=== PATIENT | female | born 1960 | race Caucasian/White ===

== ENCOUNTER → 2024-07-03 10:25 | Outpatient (BNVA) | payer MEDICARE, MEDICAID, SELFPAY | PROVIDERS: Visit Provider Orthopaedic Surgery | DX: M54.6 Pain in thoracic spine; S62.101A Fracture of unspecified carpal bone, right wrist, initial encounter for closed fracture; W19.XXXA Unspecified fall, initial encounter; Z46.89 Encounter for fitting and adjustment of other specified devices; S52.591D Other fractures of lower end of right radius, subsequent encounter for closed fracture with routine healing; X58.XXXD Exposure to other specified factors, subsequent encounter | CPT/HCPCS: 72072; 73110; 99204 ==

== ENCOUNTER 2024-07-03 11:34 | Outpatient (CLI) | payer MEDICARE, MEDICAID, SELFPAY | END 2024-07-03 11:35 | disposition home or self-care (01) | LOC: SPT 11:36 | PROVIDERS: Visit Provider Orthopaedic Surgery | DX: Z46.89 Encounter for fitting and adjustment of other specified devices (principal); S52.591D Other fractures of lower end of right radius, subsequent encounter for closed fracture with routine healing; X58.XXXD Exposure to other specified factors, subsequent encounter | CPT/HCPCS: 97760; L3982 ==

== ENCOUNTER 2024-07-18 11:13 | Outpatient (CLI) | payer MEDICARE, MEDICAID, SELFPAY ==
--- NOTE | 2024-07-18 12:15 | MR_ITS ---
WS: [id number] MRI LUMBAR SPINE NONCONTRAST TECHNIQUE: Sagittal T1, T2 and STIR imaging. Axial T1 and T2 imaging. CLINICAL INFORMATION: Back Pain COMPARISON: None. FINDINGS: Mild lumbar curve. Biconcave compression fracture T12 with loss of approximate 20% vertebral body hei ght with associated edema. Visualized fracture clefts. Mild retropulsion posterior inferior cortex wi th mild central canal stenosis and mild disc bulging at T12-L1. Prior pedicle screw fixation L3-L5. No other acute appearing compression fractures in the lumbar spin e. L1-L2: Mild annular bulging. Mild facet arthropathy. Slight narrowing of the LEFT greater than RIGHT subarticular recess. Foramina are patent. L2-L3: Slight anterolisthesis L2 on L3. Prominent central disc protrusion with moderate to severe sun tral canal stenosis. Impingement of the subarticular recess bilaterally. Moderate facet arthropathy. Moderate RIGHT and mild LEFT foraminal narrowing. L3-L4: Spinal canal and foramen are patent. Laminectomy defects. L4-L5: Spinal canal and foramen are patent. Laminectomy defects. L5-S1: Spinal canal and foramen are patent. Mild facet arthropathy. Partially visualized edema within the S3 and S4 sacral segments with diffuse edema. Associated irregu larity suspicious for fracture with callus formation. Recommend correlation for sacrococcygeal fractu re and pain. MR/MR lumbar spine wo con* [id number] IMPRESSION: 1. Diffuse edema in the distal sacrum and sacral coccygeal junction with irreg ularity suspicious for fracture with callus formation. Recommend correlation fo r sacral pain. 2. T12 compression fracture described on the thoracic spine MRI. 3. Moderate to severe central canal stenosis L2-3 due to disc bulge and facet arthropathy with ligamentum flavum hypertrophy. 4. Spinal canal foramina are patent at the fusion levels L3-L5.
--- NOTE | 2024-07-18 14:30 | MR_ITS ---
WS: [id number] MRI THORACIC SPINE WITHOUT CONTRAST TECHNIQUE: Sagittal T1, T2 and STIR imaging. Axial T2 imaging. Noncontrast imaging obtained. CLINICAL INFORMATION: Back pain COMPARISON: None. FINDINGS: Mild thoracic curve. Moderate thoracic kyphosis. Compression fractures with edema involving the T8 ve rtebral body and T12 vertebral body. Mild compression of the RIGHT superior endplate L1 with trace ed tiny. Anterior wedging at T8 with approximately 50% loss of vertebral body height anteriorly. No significan t retropulsion. Biconcave compression of the T12 vertebral body with fracture cleft in the inferior e ndplate with loss of approximately 20% vertebral body height. Minimal retropulsion of the posterior i nferior cortex. Mild central canal stenosis. Tiny LEFT paracentral protrusion at T6-T7. Tiny shallow central protrusion T9-T10. Prominent LEFT paracentral protrusion T10-T11 with mild central canal stenosis and slight indentation LEFT ventral thoracic cord. Mild LEFT foraminal narrowing. Mild to moderate facet arthropathy lower thoracic spine. Normal caliber thoracic aorta. MR/MR thoracic spin wo con* [id number] IMPRESSION: 1. Recent compression fractures at T8 and T12 with associated edema described above. Slight compression RIGHT L1 superior end plate with trace edema. 2. Mild central canal stenosis T12 due to slight retropulsion of the posterior inferior cortex. 3. Prominent LEFT paracentral protrusion T10-11 with mild central canal stenos is and slight indentation on the thoracic cord
== END 2024-07-18 11:14 | disposition home or self-care (01) ==
LOC: RAD 11:13
PROVIDERS: PCP Family Medicine; Visit Provider Orthopaedic Surgery
DX: S22.060A Wedge compression fracture of T7-T8 vertebra, initial encounter for closed fracture (principal); S22.080A Wedge compression fracture of T11-T12 vertebra, initial encounter for closed fracture; M51.24 Other intervertebral disc displacement, thoracic region; X58.XXXA Exposure to other specified factors, initial encounter
CPT/HCPCS: 72146; 72148

== ENCOUNTER → 2024-07-24 13:15 | Outpatient (BNVA) | payer MEDICARE, MEDICAID, SELFPAY | PROVIDERS: PCP Family Medicine; Visit Provider Orthopaedic Surgery | DX: M54.9 Dorsalgia, unspecified (principal); Z09 Encounter for follow-up examination after completed treatment for conditions other than malignant neoplasm | CPT/HCPCS: 36415; 80053; 81001; 85025; 99214 ==

== ENCOUNTER → 2024-07-31 13:22 | Outpatient (BNVA) | payer MEDICARE, MEDICAID, SELFPAY | PROVIDERS: PCP Family Medicine; Visit Provider Family Medicine | DX: Z01.818 Encounter for other preprocedural examination (principal) | CPT/HCPCS: 81003 ==

== ENCOUNTER 2024-08-06 07:22 | Day surgery (SDC) | payer MEDICARE, MEDICAID, SELFPAY ==
[2024-08-06] VITALS (13 sets, daily range): BP systolic 130–171; BP diastolic 77–99; PULSE 60–79; RESP 16–18; TEMP 36.2–36.5; O2SAT 90–100; BMI 17.2
--- NOTE | 2024-08-06 07:28 | SC_ITS ---
WS: [id number] Exam: C-arm FL for Kyphoplasty Date/Time of Exam: 08/06/2024 7:28 AM Reason For Exam: Surgery Limited intraoperative C-arm images of the thoracic and lumbar spine are submitted. Images were obtai yony for intraoperative purposes.
[2024-08-06] MEDS: sodium chloride 0.9% 1,000 ML 30 ML IV (08:26)
--- NOTE | 2024-08-06 08:41 | W.PM.OPSUD ---
Surgery/Procedure H&P Update DATE OF PROCEDURE: August 06, 2024 DATE H&P PERFORMED: 07/24/24 H&P UPDATE INFORMATION: I have reviewed H&P completed within last 30 days, I have examined patient prior to procedure and No changes to prior documentation PREOP DIAGNOSIS: T8, T12 and L1 osteoporotic wedge traumatic compression fractures PLANNED PROCEDURE: Operation Date: 08/06/24 09:05 Proposed Procedures p KyphoplastyT8, T12, L1(Not Applicable) - Yunior Zafar DO
--- NOTE | 2024-08-06 09:05 | ANES.PREANE2 ---
Pre-Anesthetic Assessment Height/Weight: Height 1.63 m Weight 45.359 kg Temp Pulse Resp BP Pulse Ox O2 Del Method 97.6 F 60 16 171/78 97 Room Air 08/06/24 07:52 08/06/24 07:52 08/06/24 07:52 08/06/24 07:52 08/06/24 07:52 08/06/24 07:52 Preop Diagnosis: T8, T12 and L1 osteoporotic wedge traumatic compression fractures Operation Date: 08/06/24 09:05 Proposed Procedures p KyphoplastyT8, T12, L1(Not Applicable) - Yunior Zafar, DO Familial anesthetic complications: None Was Beta Jeffy taken within 24 hours: N/A Was Clonidine taken within 24 hours: N/A Last intake: Intake Last Liquid Date 08/05/24 Last Liquid Time 23:55 Last Solid Date 08/05/24 Last Solid Time 17:30 Social Tobacco and No alcohol Exam alert, oriented x 3, clear to auscultation bilaterally and regular rate & rhythm Airway Mallampati: Class II Pulmonary Chronic Obstructive Pulmonary Disease CV/HEM Hypertension Anesthetic Plan ASA status: 3 Anesthesia: General Risk of > 500 ml blood loss (7ml/kg in children): No Medications/Allergies Home Medications Medication Instructions Recorded Confirmed Last Taken Type Fast form #1 ea 07/03/24 07/24/24 Unknown Rx amlodipine 5 mg tablet 5 mg PO DAILY 07/28/24 08/05/24 08/05/24 History budesonide-formoterol HFA 80 2 puff inhalation BID 07/28/24 08/05/24 08/06/24 History mcg-4.5 mcg/actuation aerosol inhaler (Symbicort) bupropion HCl 150 mg 24 hr tablet, 150 mg PO DAILY 07/28/24 08/05/24 08/05/24 History extended release cariprazine 3 mg capsule (Vraylar) 3 mg PO DAILY 07/28/24 08/05/24 08/05/24 History cyanocobalamin (vitamin B-12) 5,000 mcg PO DAILY 07/28/24 08/05/24 08/05/24 History 5,000 mcg capsule diclofenac sodium 50 mg 50 mg PO BID 07/28/24 08/05/24 08/05/24 History tablet,delayed release donepezil 10 mg tablet 10 mg PO .qhs 07/28/24 08/05/24 08/05/24 History ferrous sulfate 325 mg (65 mg 325 mg PO DAILY 07/28/24 08/05/24 08/05/24 History iron) tablet,delayed release gabapentin 300 mg capsule 300 mg PO TID 07/28/24 08/05/24 08/05/24 History levomilnacipran 80 mg capsule,24 80 mg PO DAILY 07/28/24 08/05/24 08/05/24 History hr,extended release (Fetzima) losartan 100 mg tablet 100 mg PO DAILY 07/28/24 08/05/24 08/05/24 History magnesium 200 mg tablet 200 mg PO DAILY 07/28/24 08/05/24 08/05/24 History oxycodone 5 mg tablet 5 mg PO BID PRN pain 7 days #14 07/31/24 08/05/24 08/06/24 Rx tabs Allergies Allergy/AdvReac Type Severity Reaction Status Date / Time No Known Allergies Allergy Verified 07/28/24 11:41 Current Medications Generic Name Dose Route Start Last Admin Trade Name Freq PRN Reason Stop Dose Admin Sodium Chloride 1,000 mls @ 30 mls/hr 08/06/24 07:30 08/06/24 08:26 Sodium Chloride 0.9% IV 08/07/24 07:29 30 mls/hr .Q24H KARLIE Administration PFSH Anesthesia Social History Smoking and tobacco/nicotine status: current every day tobacco/nicotine user Data Anesthesia Cardiac Studies: No Data to Display
[2024-08-06] MEDS: ceFAZolin 2,000 mg SDV 2000 MG IVP (09:07)
[2024-08-06] MEDS: iohexol 300 mg/mL 50 mL Btl XX (09:44)
[2024-08-06] MEDS: lidocaine-epi 2% PF 1:200,000 20 mL SDV 10 ML XX (09:45)
--- NOTE | 2024-08-06 10:31 | PM.OP ---
Operative Report Date of procedure: August 06, 2024 Pre-op diagnosis: T8, T12 and L1 osteoporotic wedge traumatic compression fractures Post-op diagnosis: same Procedure done: 1. T8 kyphoplasty 2. T12 kyphoplasty 3. L1 kyphoplasty Surgeon: Yunior Zafar DO Estimated blood loss (mL): 5 Procedure: 1. T8 kyphoplasty 2. T12 kyphoplasty 3. L1 kyphoplasty Patient brought the operative suite after an Gonasi was placed in the prone position. All his impingement well-padded. Biplanar fluoroscopy was brought in. Patient was then prepped and draped normal sterile fashion. All his impingement well-padded. Skin incisions made over the lateral left pedicle of L1. This again confirmed under biplanar fluoroscopy. Skin incision made the awl was inserted followed by the drill followed by the balloon. Balloon was inflated deflated and pulled out. The vertebrae was then filled with cement this was done under biplanar fluoroscopy. Vertebrae had good fill. Next attension was brought to T12. Again skin incision made on the left lateral pedicle. Skin incisions were made awl was inserted followed by the drill. Balloon was then inserted. Balloon was inflated and deflated. Balloon was removed. The vertebrae was then again filled with cement. AP and lateral fluoroscopy ensured there was in good position. Next attension was brought to the T8 vertebrae. The incision is being made on the left lateral pedicle. The awl was inserted. The drill was then inserted. The balloon was inserted and inflated and deflated. Balloon was then removed. And the void was filled with cement to good fill on AP lateral fluoroscopy. Final x-rays were taken the splint looks like it is good position. Wounds irrigated closed with nylon suture. Sterile dressings applied patient transferred to the PACU in stable condition.
[2024-08-06] MEDS: fentaNYL 50 mcg/mL INJ 2mL IVP (10:35)
[2024-08-06] MEDS: oxyCODONE-APAP 5-325 mg Tablet 1 TAB PO (11:21)
--- NOTE | 2024-08-06 11:40 | ANE.PACU2 ---
Inpatient post-anesthesia follow up: Airway intact: Yes Vital signs: Temperature 97.7 F Pulse Rate 69 Respiratory Rate 16 Blood Pressure 130/77 Pulse Oximetry 91 Oxygen Delivery Me thod Room Air Oxygen Flow Rate 8 Fraction of Inspir ed Oxygen Hydration adequate: Yes Nausea and vomiting: No Pain level: 1 Mental status: Baseline
== END 2024-08-06 11:48 | disposition home or self-care (01) ==
PROVIDERS: PCP Family Medicine; Visit Provider Orthopaedic Surgery
PROC: (CPT 22513; principal; 2024-08-06 08:55)
DX: S22.060A Wedge compression fracture of T7-T8 vertebra, initial encounter for closed fracture (principal); S22.080A Wedge compression fracture of T11-T12 vertebra, initial encounter for closed fracture; S32.010A Wedge compression fracture of first lumbar vertebra, initial encounter for closed fracture; X58.XXXA Exposure to other specified factors, initial encounter; J44.9 Chronic obstructive pulmonary disease, unspecified; I10 Essential (primary) hypertension; F17.200 Nicotine dependence, unspecified, uncomplicated
CPT/HCPCS: 22513; 22515 ×2; 76000; J0690; J1100; J2405; J2704; J3010; J3490; J7030

== ENCOUNTER → 2024-08-21 13:18 | Outpatient (BNVA) | payer MEDICARE, MEDICAID, SELFPAY | PROVIDERS: PCP Family Medicine; Visit Provider Orthopaedic Surgery | DX: Z09 Encounter for follow-up examination after completed treatment for conditions other than malignant neoplasm (principal); Z01.818 Encounter for other preprocedural examination | CPT/HCPCS: 72072; 72100; 73110; 99213 ==

== ENCOUNTER → 2024-09-25 10:45 | Outpatient (BNVA) | payer MEDICARE, MEDICAID, SELFPAY | PROVIDERS: PCP Family Medicine; Visit Provider Orthopaedic Surgery | DX: S52.551D Other extraarticular fracture of lower end of right radius, subsequent encounter for closed fracture with routine healing (principal); X58.XXXD Exposure to other specified factors, subsequent encounter | CPT/HCPCS: 73110; 99213 ==

== ENCOUNTER → 2025-03-03 10:55 | Outpatient (BNVA) | payer MEDICARE, MEDICAID, SELFPAY | PROVIDERS: PCP Family Medicine; Visit Provider Orthopaedic Surgery | DX: M54.9 Dorsalgia, unspecified (principal) | CPT/HCPCS: 72072; 72100; 99213 ==

== ENCOUNTER 2025-03-05 12:59 | Outpatient (CLI) | payer OTHER, MEDICAID, SELFPAY ==
--- NOTE | 2025-03-05 13:00 | MR_ITS ---
WS: [id number] MRI LUMBAR SPINE NONCONTRAST HISTORY: back pain COMPARISON: MRI 07/18/2024 TECHNIQUE: Sagittal and axial multisequence imaging is submitted. Prior kyphoplasties at T8, T12 and L1. Mild anterior wedging of the T7. Posterior lumbar fusion from L3-L5. Previously described intense signal abnormality in the distal sacrum has resolved. New S1-S2 separation. S1 anterolisthesis by 5 mm is new since the prior exam. There is new edema involving the sacrum which has progressed since 07/18/2024. Conus terminates normally at L1-2 disc level. T11-12: Facet arthritis encroaching upon the posterior thecal sac. No high-grade stenosis. Bilateral moderate facet arthritis encroaching upon the thecal sac. Mild bilateral foraminal stenosis. L1-L2: Mild annular disc bulging with ligamentum flavum and facet arthritis. Mild central, subarticular recess and RIGHT foraminal stenosis. L2-L3: Diffuse annular disc bulging with ligamentum flavum and facet arthritis. Disc osteophyte disease encroaching upon the central canal and foramina. Prominent central disc protrusions. There is moderate to severe central, bilateral subarticular recess and RIGHT foraminal stenosis. Mild LEFT foraminal stenosis. Similar to the prior study. L3-L4: Diffuse annular disc bulging with a large posterior laminectomy. Clumping of the nerve roots in the thecal sac. Mild RIGHT foraminal stenosis. L4-L5: Mild annular disc bulging with a large posterior laminectomy defect. Mild bilateral foraminal stenosis. L5-S1: Mild facet arthritis. Mild LEFT foraminal stenosis. Atherosclerotic changes within the abdominal aorta. MR/MR lumbar spine wo con* [id number] IMPRESSION: 1. Since prior examination patient has undergone posterior lumbar fusion from L3-L5 with laminectomy defects. 2. Reidentified is the moderate to severe central, bilateral subarticular rece ss and RIGHT foraminal stenosis at L2-3. Not obviously changed from the prior s tudy. 3. New S1 anterolisthesis by 5 mm. Anterolisthesis of S1 is new. 4. New extensive marrow edema in the sacrum including S1-S2. Consider sacral i nsufficiency fracture. 5. Mild central, subarticular recess and RIGHT foraminal stenosis at L1-2. 6. Mild bilateral foraminal stenosis at L4-5 and on the LEFT at L5-S1.
== END 2025-03-05 13:00 | disposition home or self-care (01) ==
PROVIDERS: PCP Family Medicine; Visit Provider Orthopaedic Surgery
DX: M48.061 Spinal stenosis, lumbar region without neurogenic claudication (principal); Z98.1 Arthrodesis status; M96.89 Other intraoperative and postprocedural complications and disorders of the musculoskeletal system; M43.18 Spondylolisthesis, sacral and sacrococcygeal region; R93.7 Abnormal findings on diagnostic imaging of other parts of musculoskeletal system; M48.07 Spinal stenosis, lumbosacral region; Z98.890 Other specified postprocedural states; M48.54XA Collapsed vertebra, not elsewhere classified, thoracic region, initial encounter for fracture; M47.894 Other spondylosis, thoracic region; M48.04 Spinal stenosis, thoracic region; M51.369 Other intervertebral disc degeneration, lumbar region without mention of lumbar back pain or lower extremity pain; M24.28 Disorder of ligament, vertebrae; M47.896 Other spondylosis, lumbar region; M25.78 Osteophyte, vertebrae; M51.26 Other intervertebral disc displacement, lumbar region; M47.897 Other spondylosis, lumbosacral region; I70.0 Atherosclerosis of aorta
CPT/HCPCS: 72148

== ENCOUNTER 2025-04-08 10:00 | Outpatient (CLI) | payer OTHER, MEDICAID, MEDICARE, SELFPAY ==
--- NOTE | 2025-04-08 10:08 | USCV_ITS ---
NAOMI HERNANDEZ Age: 64 Gender: F : 1960 Exam Date: 04/08/2025 10:45 Ordering Phys: Louise Cee Technologist: Exam [place] [facility] [place] Indication: pedal edema BP: 110 / 70 HR: 60 Rhythm: Sinus Technical Quality: Adequate MEASUREMENTS (Male / Female) Normal Values 2D ECHO LV Diastolic Diameter PLAX 4.0 cm 4.2 - 5.9 / 3.9 - 5.3 cm IVS Diastolic Thickness 1.2 cm 0.6 - 1.0 / 0.6 - 0.9 cm IVS Systolic Thickness 1.6 cm LVPW Diastolic Thickness 1.1 cm 0.6 - 1.0 / 0.6 - 0.9 cm LVPW Systolic Thickness 1.5 cm LVOT Diameter 2.0 cm LV Ejection Fraction 2D Teich 59.8 % LV Ejection Fraction MOD 4C 68.8 % LV Ejection Fraction MOD 2C 73.8 % LV Ejection Fraction 2C AL 75.9 % LA Diameter 3.1 cm RA Systolic Volume 4C AL 34.4 ml RA Systolic Volume 4C MOD 34.3 ml LA Sys Volume AL 56.4 cm cubed LA Sys Volume Index AL 37.7 cm cubed/m squared Aorta at Sinotubular Diameter 2.9 cm IVC Diameter 2.1 cm M-MODE LA Ao Ratio MM 1.2 AV Cusp Separation MM 2.1 cm DOPPLER AV Peak Velocity 120.0 cm/s LVOT Peak Velocity 94.0 cm/s AV Area Cont Eq vti 3.2 cm squared AV Area Cont Eq pk 2.5 cm squared MV Peak Velocity 100.0 cm/s MV Area PHT 3.2 cm squared Mitral E to A Ratio 1.0 TV Peak Velocity 307.0 cm/s TR Peak Velocity 374.0 cm/s TR Peak Gradient 56.0 mmHg TV Peak E Velocity 90.0 cm/s PV Peak Velocity 111.0 cm/s FINDINGS Left Ventricle Left ventricle is normal in size. LV systolic function is normal with EF of 60-65%. No regional wall motion abnormalities are seen. Right Ventricle Normal in size and function Right Atrium Normal in size Left Atrium Normal in size Mitral Valve Structurally normal mitral valve. Mild mitral regurgitation Aortic Valve Structurally normal aortic valve. No significant stenosis or regurgitation. Tricuspid Valve Mild tricuspid regurgitation. RVSP is 55 to 60 mmHg. This is consistent with moderate pulmonary hypertension Pulmonic Valve Not well visualized Pericardium Normal Aorta Normal in size IVC Appears to be normal CONCLUSIONS LV systolic function is normal with EF of 60-65%. Mild mitral regurgitation Mild tricuspid regurgitation Moderate pulmonary hypertension Claudio Santiago MD (Electronically Signed) Final Date: 24 April 2025 10:27 S
== END 2025-04-08 10:01 | disposition home or self-care (01) ==
LOC: RAD 10:03
PROVIDERS: PCP Family Medicine; Visit Provider Nurse Practitioner Family
DX: R60.0 Localized edema (principal); I34.0 Nonrheumatic mitral (valve) insufficiency; I07.1 Rheumatic tricuspid insufficiency; R93.1 Abnormal findings on diagnostic imaging of heart and coronary circulation
CPT/HCPCS: 93306

== ENCOUNTER 2025-07-04 08:48 | Emergency (ER) | payer OTHER, MEDICAID, SELFPAY ==
--- OUTSIDE RECORDS SUMMARY | 2025-07-02 06:46 | XMS_ITS | Encounter Summary ---
Author Organization [facility] Address [address] [place] [address] Care Team Providers Care Voice Network Engineer Name Role Phone eJancarlos Tiwari MD Primary Care Provider [phone] Reason for Referral * Radiology Services (Routine) - Closed Specialty Diagnoses / Procedures Referred By Pascual bhandari Referred To Contact Radiology Diagnoses Left ankle swelling Suspected DVT (deep vein thrombosis) Localized swelling, mass and lump, left lower limb Procedures US VENOUS DOPPLER LEG LEFT Lizzeth Bennett FNP [address] [address] Phone: tel: fax: [email or web address] [place] [address] [address] Phone: tel: fax: Referral ID Status Reason Start Date Expiration Date V isits Requested Visits Authorized [id number] Closed [facility] View CTS to Schedule 06/26/2025 07/27/2026 1 1 Reason for Visit * Radiology Services (Routine) - Closed Specialty Diagnoses / Procedures Referred By Pascual bhandari Referred To Contact Radiology Diagnoses Left ankle swelling Suspected DVT (deep vein thrombosis) Localized swelling, mass and lump, left lower limb Procedures US VENOUS DOPPLER LEG LEFT Lizzeth Bennett FNP [address] [address] Phone: tel: fax: [email or web address] [place] [address] [address] Phone: tel: fax: Referral ID Status Reason Start Date Expiration Date V isits Requested Visits Authorized [id number] Closed [facility] View CTS to Schedule 06/26/2025 07/27/2026 1 1 Encounter Details Date Type Department Care Team (Latest Contact Info) Description 07/02/2025 6:46 AM CDT - 07/02/2025 11:59 PM CDT Hospital Encounter [facility] [place] [address] [place] [address] Lizzeth Bennett, [facility] [address] [facility] [address] [place] [address] Arrived Discharge Disposition: Home or Self Care Social History Tobacco Use Types Packs/Day Years Used Date Smoking Tobacco: Every Day Cigarettes 1 40.7 Started: 1984 Smokeless Tobacco: Never Alcohol Use Standard Drinks/Week Comments Not Currently 0 (1 standard drink = 0.6 oz pur e alcohol) Feeling Safe Answer Date Recorded Are you in a relationship wi th someone who hurts you emotionally and/or physically? 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 90 Tablet 06/29/2025 predniSONE (DELTASONE) 5 mg tabletIndications: Acute left ankle pain Take 6 tablets (all at once) on day 1, then decrease by 1 tablet daily until gone. 21 Tablet 06/19/2025 HYDROcodone-acetam inophen (NORCO) 7.5-325 mg TabletIndications: Lumbar radiculopathy Take 1 Tablet by mouth 2 times daily as needed for Pain, Moderate. Dose adjustment Max Daily Amount: 2 Tablets 60 Tablet 06/08/2025 mupirocin (BACTROBAN) 2 % OintmentIndication s:Skin tear of right lower leg without complication, initial encounter APPLY TO AFFECTED AREA(S) TOPICALLY DAILY 15 Gram 2 05/15/2025 budesonide-formote roL (Symbicort) 80-4.5 mcg/actuation HFA Aerosol InhalerIndications :Simple chronic bronchitis (CMS/HCC) Take 2 Puffs by inhalation 2 times daily. 10.2 Gram 11 05/01/2025 losartan (COZAAR) 50 mg tabletIndications: HTN (hypertension), benign Take 1 Tablet (50 mg) by mouth daily. 100 Tablet 3 05/01/2025 cetirizine (ZyrTEC) 10 mg tabletIndications: Simple chronic bronchitis (CMS/HCC) Take 1 Tablet (10 mg) by mouth daily. 90 Tablet 05/01/2025 amLODIPine (NORVASC) 5 mg tabletIndications: Raynaud's phenomenon without gangrene,HTN (hypertension), benign Take 1 Tablet (5 mg) by mouth daily. 100 Tablet 3 05/01/2025 ipratropium-albute roL (DUONEB) 0.5 mg-3 mg(2.5 mg base)/3 mL Solution for NebulizationIndica tions:Simple chronic bronchitis (CMS/HCC) USE 1 AMPULE IN NEBULIZER EVERY 6 HOURS NEEDED FOR SHORTNESS OF BREATH OR WHEEZING 720 mL 2 04/15/2025 mecobalamin, vitamin B12, 5,000 mcg Lozenge Take 1 lozenge every day by oral route. buPROPion HCL (WELLBUTRIN XL) 150 mg Extended Release 24 hour tablet Take 1 Tablet (150 mg) by mouth daily in the morning. 100 Tablet 3 02/25/2025 acetaminophen (TYLENOL) 500 mg tablet Take 500 mg by mouth every 6 hours as needed for Pain. mirtazapine (REMERON) 7.5 mg tabletIndications: Decreased appetite,Failure to thrive in adult Take 1 Tablet (7.5 mg) by mouth daily at bedtime. 90 Tablet 3 02/16/2025 gabapentin (NEURONTIN) 100 mg capsuleIndications :Acute midline low back pain without sciatica,Acute midline thoracic back pain,T12 compression fracture, initial encounter ([facility]) Take 2 Capsules (200 mg) by mouth 3 times daily. Dose adjustment 180 Capsule 6 02/16/2025 naloxegoL (Movantik) 25 mg TabletIndications: Opioid-induced constipation Take 1 Tablet (25 mg) by mouth daily before breakfast. 90 Tablet 3 02/16/2025 donepeziL (ARICEPT) 10 mg tabletIndications: Neurocognitive disorder TAKE 1 TABLET BY MOUTH AT BEDTIME 100 Tablet 3 02/13/2025 levomilnacipran (Fetzima) 80 mg Extended Release 24 hour capsuleIndications :EDDIE (generalized anxiety disorder),Bipolar affective disorder, currently depressed, moderate ([facility]/HCC),Moderate episode of recurrent major depressive disorder ([facility]/HCC) TAKE 1 CAPSULE BY MOUTH ONCE DAILY 100 Capsule 3 02/13/2025 cariprazine (Vraylar) 3 mg Capsule capsuleIndications :EDDIE (generalized anxiety disorder),Bipolar affective disorder, currently depressed, moderate ([facility]),Moderate episode of recurrent major depressive disorder ([facility]/HCC) TAKE 1 CAPSULE BY MOUTH DAILY 100 Capsule 3 02/13/2025 albuterol sulfate HFA 90 mcg/actuation aerosol inhalerIndications :Simple chronic bronchitis (CMS/[facility]) Take 2 Puffs by inhalation every 6 hours as needed for Shortness of Breath. 8.5 Gram 11 01/23/2025 nebulizerIndicatio ns:Simple chronic bronchitis (CMS/HCC) Length of need 99 months Nebulizer with compressor, Kit: Disposable Nebulizer Kit, 2 per month, filters , areosol mask: Yes. Name of Medication Albuterol 1 Each 01/23/2025 naloxone (NARCAN) 4 mg/spray [place], Non-Aerosol Administer 1 [place] (4 mg) in one nostril (alternate nostril with each dose) every 5 minutes as needed for Respiration (slowed with opioid use). Push plunger to administer. Call 911. May repeat dose, every 2-3 minutes, if the person does not wake up or breathing is not improved. 2 Each 01/21/2025 fluticasone propionate (FLONASE) 50 mcg/spray [place], Suspension nasal inhalerIndications :Allergic rhinitis due to animal hair and dander Administer 2 Sprays in each nostril daily. 48 Gram 3 10/31/2024 diclofenac sodium (VOLTAREN) 50 mg Tablet, Delayed Release (E.C.)Indications: Raynaud's phenomenon without gangrene take one (1) tablet by mouth twice daily 200 Tablet 3 03/20/2024 cholecalciferol, vitamin D3, (Vitamin D3) 5,000 unitIndications:Vi tamin D deficiency,S/P gastric bypass Take 1 Tablet (5,000 Units) by mouth daily. 90 Tablet 1 02/02/2023 ferrous sulfate 325 mg (65 mg iron) tablet Take 325 mg by mouth daily. CYANOCOBALAMIN, VITAMIN B-12, ORAL Take 5,000 mcg by mouth daily. mv-min/folic/vit K/lycop/coQ10 (DAILY MULTIVITAMIN ORAL) Take 1 Tablet by mouth daily. documented as of this encounter Plan of Treatment Upcoming Encounters Date Type Department Care Team (Late st Contact Info) Description 11/02/2025 10:40 AM DOCTOR OF NATUROPATHIC MEDICINE Office Visit [facility] [address] [phone] Jeancarlos Tiwari MD [address] [address] Pending Results Name Type Priority Associated Diagnoses Date /Time US VENOUS DOPPLER LEG LEFT Imaging Routine Left ankle swelling Suspected DVT (deep vein thrombosis) Localized swelling, mass and lump, left lower limb 07/02/2025 9:21 AM CDT Scheduled Orders Name Type Priority Associated Diagnoses Orde r Schedule US VENOUS DOPPLER LEG LEFT Imaging Routine Left ankle swelling Suspected DVT (deep vein thrombosis) Localized swelling, mass and lump, left lower limb Added to HDF configuration to grandchildren will have ORD item [id number] populate with time. for 1 Occurrences starting 07/02/2025 until 07/02/2025 documented as of this encounter Goals Goal Patient Goal Type Associated Problems Recent Progress Patient-Stated? Author Patient Stated General Yes Micheline Singh Note: 02/19/2023 Today's SMART Goal: Patient will make a list of things she does NOT want in a relationship By the next contact. Progress: documented as of this encounter Visit Diagnoses Diagnosis Left ankle swelling Effusion of ankle and foot joint Suspected DVT (deep vein thrombosis) Localized swelling, mass and lump, left lower limb documented in this encounter Additional Health Concerns Assessment Noted Time PHQ-9 Depression Total Score: 1 01/27/20 25 1:06 PM CDT documented as of this encounter Care Teams Voice Network Engineer Relationship Specialty Start Date End Date Jeancarlos Tiwari MD [address] [address] PCP - General Family Practice 12/13/22 documented as of this encounter
[2025-07-04 08:55] VITALS: BP 131/87; PULSE 86; RESP 18; TEMP 36.6; O2SAT 94; BMI 16.8
--- NOTE | 2025-07-04 08:55 | XRR_ITS ---
PROCEDURE INFORMATION: Exam: XR Abdomen Exam date and time: 07/04/2025 9:04 AM Age: 64 years old Clinical indication: Constipation; Prior surgery; Surgery date: 6+ months; Surgery type: Gastric bypass 2004, hernia repair; Additional info: Constipation x 4 days; Abdominal pain/distention TECHNIQUE: Imaging protocol: Radiologic exam of the abdomen. Views: Frontal supine view of the abdomen. 1 View. COMPARISON: MR lumbar spine wo con* [id number] 03/05/2025 1:15 PM FINDINGS: Gastrointestinal tract: Dilated loops of what appears to be small bowel in the upper and left upper abdomen suggest obstruction. Moderate colonic fecal material suggesting constipation. Bones/joints: Multilevel thoracolumbar kyphoplasty. Lower lumbar fusion. Right hip replacement. XR/XR KUB [id number] IMPRESSION: Dilated upper abdominal small bowel loops. This could represent either ileus or obstruction.
--- NOTE | 2025-07-04 08:57 | W.ED.GENADLT ---
HPI - General Adult General: Chief complaint: General Medical Stated complaint: No BM in 4 days can't pee Time Seen by Provider: 07/04/25 08:50 Source: patient Mode of arrival: ambulatory Limitations: no limitations History of Present Illness: 64-year-old female states she has been constipated over the last 3 days. States she has had a history of constipation in the past that she has not had a bowel movement and feels backed up. States that some difficulty urinating as well. She denies any severe pain she had some nausea denies any vomiting denies any worse improved factors. Associated symptoms: Reports nausea; Deny chest pain or vomiting Related Data Home Medications ?Medication ?Instructions ?Recorded ?Confirmed amlodipine 5 mg tablet 5 mg PO DAILY 07/28/24 07/04/25 budesonide-formoterol HFA 80 2 puff inhalation BID 07/28/24 07/04/25 mcg-4.5 mcg/actuation aerosol inhaler (Symbicort) bupropion HCl 150 mg 24 hr tablet, 150 mg PO DAILY 07/28/24 07/04/25 extended release cariprazine 3 mg capsule (Vraylar) 3 mg PO DAILY 07/28/24 07/04/25 cyanocobalamin (vitamin B-12) 5,000 mcg PO DAILY 07/28/24 07/04/25 5,000 mcg capsule diclofenac sodium 50 mg 50 mg PO BID PRN inflammation or 07/28/24 07/04/25 tablet,delayed release pain donepezil 10 mg tablet 10 mg PO .qhs 07/28/24 07/04/25 ferrous sulfate 325 mg (65 mg 325 mg PO DAILY 07/28/24 07/04/25 iron) tablet,delayed release levomilnacipran 80 mg capsule,24 80 mg PO DAILY 07/28/24 07/04/25 hr,extended release (Fetzima) albuterol sulfate 90 mcg/actuation 2 puff inhalation Q6H PRN 07/04/25 07/04/25 aerosol inhaler Shortness Of Breath baclofen 5 mg tablet 5 mg PO TID PRN Pain 07/04/25 07/04/25 fluticasone propionate 50 2 spray intranasal DAILY 07/04/25 07/04/25 mcg/actuation nasal spray,suspension gabapentin 100 mg capsule 200 mg PO TID 07/04/25 07/04/25 hydrocodone 7.5 mg-acetaminophen 1 tab PO BID PRN Moderate Pain 07/04/25 07/04/25 325 mg tablet (Scale Score 5-6) ipratropium 0.5 mg-albuterol 3 mg 3 ml inhalation Q6H PRN Shortness 07/04/25 07/04/25 (2.5 mg base)/3 mL nebulization Of Breath Or Wheezing soln losartan 50 mg tablet 50 mg PO DAILY 07/04/25 07/04/25 mirtazapine 7.5 mg tablet 7.5 mg PO DAILY 07/04/25 07/04/25 mupirocin 2 % topical ointment 1 applic topical DAILY PRN Skin 07/04/25 07/04/25 Irritation naloxegol 25 mg tablet (Movantik) 25 mg PO QAM 07/04/25 07/04/25 Previous Rx's ?Medication ?Instructions ?Recorded Fast form #1 ea 07/03/24 Allergies Allergy/AdvReac Type Severity Reaction Status Date / Time No Known Allergies Allergy Verified 09/25/24 11:09 Review of Systems Const: Denies: fever(s) Card: Denies: chest pain GI: Reports: nausea and constipation; Denies: abdominal pain or vomiting : Reports: difficulty voiding; Denies: flank pain PFSH ED PFSH: Social History Smoking and tobacco/nicotine status: current every day tobacco/nicotine user Physical Exam Const: COMMON NORMALS: no acute distress, patient oriented x3 and healthy appearing HENMT: COMMON NORMALS: normocephalic and atraumatic HEAD & SCALP: normocephalic and atraumatic Eye: COMMON NORMALS: Equal, round and reactive pupils present and EOMs intact bilaterally PUPIL: Yes Equal, round and reactive pupils present Neck/C-Spine: COMMON NORMALS: full ROM and supple Chest: COMMONS NORMALS: normal inspection of the chest and normal palpation of entire chest wall Resp: COMMON NORMALS: normal respiratory effort, No retractions, No use of accessory muscles and clear to auscultation bilaterally AUSCULTATION: clear to auscultation bilaterally Cardio: COMMON NORMALS: regular rate, regular rhythm and No murmurs present (Cardio) RATE: regular rate RHYTHM: regular rhythm GI: COMMON NORMALS: Normal to inspection, nondistended, normoactive bowel sounds present, Soft to palpation, non-tender and no masses PALPATION: Yes Soft to palpation Extremity: COMMON NORMALS: normal to inspection and full ROM Neuro: COMMON NORMALS: patient oriented x3, moves all extremities and no focal motor deficits Psych: COMMON NORMALS: mental status grossly normal, Normal thought process present and cooperative THOUGHT PROCESS: Normal thought process present Skin: COMMON NORMALS: no rashes or lesions noted and no wounds GENERAL SKIN EXAM: no rashes or lesions noted Course Vital Signs: Vital signs: Vital Signs Temperature 97.8 F 07/04/25 08:55 Pulse Rate 86 07/04/25 08:55 Respiratory Rate 18 07/04/25 08:55 Blood Pressure 131/87 07/04/25 09:34 Pulse Oximetry 92 07/04/25 09:34 Oxygen Delivery Me thod Room Air 07/04/25 09:34 MDM - General Adult Medical Decision Making Patient presents here with abdominal pain has been mild but mainly not have any bowel movements on her CT scan she does have an intussusception with small bowel obstruction she had an elevated white count here as well patient was given fluid bolus along with IV antibiotics. She is hypokalemic did give her IV potassium. I did speak to surgeon here Dr. Mccarthy who came and saw and evaluated patient and felt she needed higher level of care due to her history of gastric bypass surgery and having the intussusception. I did speak to surgeon at [facility] Dr. Willoughby who graciously accepted I did discuss this with the patient letting her know I will transfer her there. Medical Records I reviewed the patient's medical records. Lab Data I reviewed the patient's lab results. 07/04/25 09:06 07/04/25 09:06 Radiology Impressions KUB X-Ray 07/04/25 08:55 IMPRESSION: Dilated upper abdominal small bowel loops. This could represent either ileus or obstruction. Abdomen/Pelvis CT 07/04/25 09:12 IMPRESSION: 1. Small bowel obstruction secondary to small bowel intussusception. 2. Other findings as detailed above. ADDENDUM: 07/04/25 [id number] Thank youCOMMENT: THIS REPORT CONTAINS FINDINGS THAT MAY BE CRITICAL TO PATIENT CARE. The exam findings were verbally communicated by me to Dr. Dixie Salazar via telephone conference at 11:35 AM CDT on 07/04/2025. The findings were acknowledged and understood. Laboratory Results WBC 22.09 10^3/uL (3.29-11.43) H 07/04/25 09:06 RBC 4.47 10^6/uL (3.85-5.65) 07/04/25 09:06 Hgb 12.30 g/dL (11.27-16.99) 07/04/25 09:06 Hct 37.3 % (36-47) 07/04/25 09:06 MCV 83.4 fl (85-98) L 07/04/25 09:06 MCH 27.5 pg (27-33) 07/04/25 09:06 MCHC 33.0 g/dL (30-55) 07/04/25 09:06 RDW 21.1 % (12.1-15.1) H 07/04/25 09:06 Plt Count 442 10^3/cmm (157-399) H 07/04/25 09:06 MPV 9.1 fL (7.4-10.4) 07/04/25 09:06 Neut % (Auto) 88.9 % 07/04/25 09:06 Lymph % (Auto) 3.4 % 07/04/25 09:06 Hall % (Auto) 7.1 % 07/04/25 09:06 Eos % (Auto) 0.0 % 07/04/25 09:06 Baso % (Auto) 0.2 % 07/04/25 09:06 Neut # (Auto) 19.63 10^3/uL (1.8-7.7) H 07/04/25 09:06 Lymph # (Auto) 0.8 10^3/uL (0.8-4.8) 07/04/25 09:06 Hall # (Auto) 1.6 10^3/uL (0.2-0.9) H 07/04/25 09:06 Eos # (Auto) 0.0 10^3/uL (0.0-0.8) 07/04/25 09:06 Baso # (Auto) 0.0 10^3/uL (0.0-0.1) 07/04/25 09:06 Nucleated RBC % (auto) 0 % 07/04/25 09:06 Nucleated RBCs # 0.0 /100WBC 07/04/25 09:06 Sodium 135 mmol/L (136-145) L 07/04/25 09:06 Potassium 2.6 mmol/L (3.5-5.1) L* 07/04/25 09:06 Chloride 96 mmol/L (98-107) L 07/04/25 09:06 Carbon Dioxide 22 mmol/L (22-29) 07/04/25 09:06 Anion Gap 19.6 (5-19) H 07/04/25 09:06 BUN 17 mg/dL (8-23) 07/04/25 09:06 Creatinine 0.6 mg/dL (0.5-0.9) 07/04/25 09:06 GFR Calculation 100.6 mL/min (90-130) 07/04/25 09:06 Glucose 184 mg/dL (65-115) H 07/04/25 09:06 Calculated Osmolality 286 mOsm/kg (285-295) 07/04/25 09:06 Calcium 8.4 mg/dL (8.5-10.5) L 07/04/25 09:06 Magnesium 2.2 mg/dL (1.7-2.3) 07/04/25 09:06 Total Bilirubin 0.5 mg/dL (0.15-1.2) 07/04/25 09:06 AST 12 U/L (0-32) 07/04/25 09:06 ALT < 5 U/L (0-33) 07/04/25 09:06 Alkaline Phosphatase 152 U/L (35-105) H 07/04/25 09:06 Total Protein 6.5 g/dL (6.6-8.7) L 07/04/25 09:06 Albumin 3.7 g/dL (3.5-5.2) 07/04/25 09:06 Globulin 2.8 g/dL (1.3-4.6) 07/04/25 09:06 Lipase 26 U/L (13-60) 07/04/25 09:06 Urine Color Yellow (Yellow) 07/04/25 10:29 Urine Appearance Clear (CLEAR) 07/04/25 10:29 Urine pH 6.5 (5-7) 07/04/25 10:29 Ur Specific [place] 1.044 (1.005-1.030) H 07/04/25 10:29 Urine Protein Trace (Negative) A 07/04/25 10:29 Urine Glucose (UA) Negative (Normal) 07/04/25 10:29 Urine Ketones 1+ (Negative) H 07/04/25 10:29 Urine Blood Non-haemolysed trace (Negative) 07/04/25 10:29 Urine Nitrate Negative (Negative) 07/04/25 10: Urine Bilirubin Negative (Negative) 07/04/25 10:29 Urine Urobilinogen 0.2 mg/dL (Negative) 07/04/25 10:29 Ur Leukocyte Esterase Negative (Negative) 07/04/25 10:29 Urine RBC 6-10 /hpf (0-2) 07/04/25 10:29 Urine WBC 0-5 /hpf (0-5) 07/04/25 10:29 Ur Squamous Epith Cells 0-5 /hpf (0-5) 07/04/25 10:29 Amorphous Sediment Not Reportable 07/04/25 10:29 Urine Bacteria None seen /hpf (NONE) 07/04/25 10:29 Hyaline Casts 8.67 /lpf 07/04/25 10:29 Fine Granular Casts 0-4 /lpf H 07/04/25 10:29 All radiology interpretation(s) finalized by discharge Critical Care Time Critical Care Time: Critical Care Time: Yes Total Critical Care Time: 35 Attestation: The high probability of a clinically significant, sudden or life threatening deterioration of the patient's gi system(s) required my full and direct attention, intervention and personal management. The critical care time is as shown. This time is in addition to time spent performing any reported procedures but includes the following: [x] Data and vital sign review and interpretation [x] Patient assessment, examination and intervention [x] Documentation [x] Medication orders and management Discharge Plan Discharge Patient Disposition: Xfer Short-Term Hosp Clinical Impression: Gastric bypass status for obesity, Intussusception of jejunum, Small bowel obstruction, Hypokalemia Condition: Stable Referrals: Jeancarlos Tiwari [Primary Care Provider, [facility]] Print Language: Israeli Coding Level of Care Code ED Reliability Specialist for Isaíasg Morales
--- OUTSIDE RECORDS SUMMARY | 2025-07-04 08:57 | XMS_ITS | Encounter Summary ---
Author Organization [facility] Address 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 Topic: Medication Request >> Jun 29, 2025 12:15 PM Lore Preston wrote: Caller Name: Digna Rick Callback Number: Telephone Information: Medication (Ask patient/caregiver to spell if possible): baclofen (LIORESAL) 5 mg tablet Preferred Pharmacy: The patient's preferred pharmacy is [address] Call Notes: Patient states pharmacy requires a new prescription. Did caller contact the correct clinic for prescribing provider? Yes Ask caller if the refill is for a controlled medication. Is this for a controlled Medication? No Review the patient's medications to determine if they have refills remaining. Are there refills remaining for the medication? No Is there an encounter open? 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 Author Patient Stated General Yes Micheline Singh Note: 02/19/2023 Today's SMART Goal: Patient will make a list of things she does NOT want in a relationship By the next contact. Progress: documented as of this encounter Visit Diagnoses Not on filedocumented in this encounter Additional Health Concerns Assessment Noted Time PHQ-9 Depression Total Score: 1 01/27/20 25 1:06 PM CDT documented as of this encounter Care Teams Transformer Mechanic Relationship Specialty Start Date End Date Jeancarlos Tiwari MD [address] [phone] PCP - General Family Practice 12/13/22 documented as of this encounter
--- OUTSIDE RECORDS SUMMARY | 2025-07-04 08:57 | XMS_ITS | Clinical Summary ---
Author Organization [facility] 1 [address] [facility] Address [address] [place] [address] Phone Care Team Providers Care Lead Pharmacy Technician Name Role Phone Jeancarlos Tiwari MD Primary Care Provider [phone] Allergies No known active allergies Medications ferrous sulfate 325 mg (65 mg iron) tablet Take 325 mg by mouth daily. Active CYANOCOBALAMIN, VITAMIN B-12, ORAL Take 5,000 mcg by mouth daily. Active mv-min/folic/vit K/lycop/coQ10 (DAILY MULTIVITAMIN ORAL) Take 1 Tablet by mouth daily. Active cholecalciferol, vitamin D3, (Vitamin D3) 5,000 unitIndications: Vitamin D deficiency,S/P gastric bypass Take 1 Tablet (5,000 Units) by mouth daily. 90 Tablet 1 023 Active diclofenac sodium (VOLTAREN) 50 mg Tablet, Delayed Release (E.C.)Indication s:Raynaud's phenomenon without gangrene take one (1) tablet by mouth twice daily 200 Tablet 3 024 Active fluticasone propionate (FLONASE) 50 mcg/spray [place], Suspension nasal inhalerIndicatio ns:Allergic rhinitis due to animal hair and dander Administer 2 Sprays in each nostril daily. 48 Gram 3 025 Active naloxone (NARCAN) 4 mg/spray [place], Non-Aerosol Administer 1 [place] (4 mg) in one nostril (alternate nostril with each dose) every 5 minutes as needed for Respiration (slowed with opioid use). Push plunger to administer. Call 911. May repeat dose, every 2-3 minutes, if the person does not wake up or breathing is not improved. 2 Each 025 Active albuterol sulfate HFA 90 mcg/actuation aerosol inhalerIndicatio ns:Simple chronic bronchitis (CMS/HCC) Take 2 Puffs by inhalation every 6 hours as needed for Shortness of Breath. 8.5 Gram 11 Active nebulizerIndicat ions:Simple chronic bronchitis (CMS/HCC) Length of need 99 months Nebulizer with compressor, Kit: Disposable Nebulizer Kit, 2 per month, filters , areosol mask: Yes. Name of Medication Albuterol 1 Each Active donepeziL (ARICEPT) 10 mg tabletIndication s:Neurocognitive disorder TAKE 1 TABLET BY MOUTH AT BEDTIME 100 Tablet 3 Active levomilnacipran (Fetzima) 80 mg Extended Release 24 hour capsuleIndicatio ns:EDDIE (generalized anxiety disorder),Bipola r affective disorder, currently depressed, moderate (CMS/HCC),Modera te episode of recurrent major depressive disorder (CMS/HCC) TAKE 1 CAPSULE BY MOUTH ONCE DAILY 100 Capsule 3 025 Active cariprazine (Vraylar) 3 mg Capsule capsuleIndicatio ns:EDDIE (generalized anxiety disorder),Bipola r affective disorder, currently depressed, moderate (CMS/HCC),Modera te episode of recurrent major depressive disorder (CMS/HCC) TAKE 1 CAPSULE BY MOUTH DAILY 100 Capsule 3 025 Active acetaminophen (TYLENOL) 500 mg tablet Take 500 mg by mouth every 6 hours as needed for Pain. Active mirtazapine (REMERON) 7.5 mg tabletIndication s:Decreased appetite,Failure to thrive in adult Take 1 Tablet (7.5 mg) by mouth daily at bedtime. 90 Tablet 3 025 Active gabapentin (NEURONTIN) 100 mg capsuleIndicatio ns:Acute midline low back pain without sciatica,Acute midline thoracic back pain,T12 compression fracture, initial encounter (CMS/HCC) Take 2 Capsules (200 mg) by mouth 3 times daily. Dose adjustment 180 Capsule 6 025 Active naloxegoL (Movantik) 25 mg TabletIndication s:Opioid-induced constipation Take 1 Tablet (25 mg) by mouth daily before breakfast. 90 Tablet 3 025 Active buPROPion HCL (WELLBUTRIN XL) 150 mg Extended Release 24 hour tablet Take 1 Tablet (150 mg) by mouth daily in the morning. 100 Tablet 3 025 Active mecobalamin, vitamin B12, 5,000 mcg Lozenge Take 1 lozenge every day by oral route. Active ipratropium-albu teroL (DUONEB) 0.5 mg-3 mg(2.5 mg base)/3 mL Solution for NebulizationIndi cations:Simple chronic bronchitis (CMS/HCC) USE 1 AMPULE IN NEBULIZER EVERY 6 HOURS NEEDED FOR SHORTNESS OF BREATH OR WHEEZING 720 mL 2 025 Active budesonide-formo teroL (Symbicort) 80-4.5 mcg/actuation HFA Aerosol InhalerIndicatio ns:Simple chronic bronchitis (CMS/HCC) Take 2 Puffs by inhalation 2 times daily. 10.2 Gram 11 Active losartan (COZAAR) 50 mg tabletIndication s:HTN (hypertension), benign Take 1 Tablet (50 mg) by mouth daily. 100 Tablet 3 025 Active cetirizine (ZyrTEC) 10 mg tabletIndication s:Simple chronic bronchitis (CMS/HCC) Take 1 Tablet (10 mg) by mouth daily. 90 Tablet 3 025 Active amLODIPine (NORVASC) 5 mg tabletIndication s:Raynaud's phenomenon without gangrene,HTN (hypertension), benign Take 1 Tablet (5 mg) by mouth daily. 100 Tablet 3 025 Active mupirocin (BACTROBAN) 2 % OintmentIndicati ons:Skin tear of right lower leg without complication, initial encounter APPLY TO AFFECTED AREA(S) TOPICALLY DAILY 15 Gram 2 025 Active HYDROcodone-acet aminophen (NORCO) 7.5-325 mg TabletIndication s:Lumbar radiculopathy Take 1 Tablet by mouth 2 times daily as needed for Pain, Moderate. Dose adjustment Max Daily Amount: 2 Tablets 60 Tablet Active predniSONE (DELTASONE) 5 mg tabletIndication s:Acute left ankle pain Take 6 tablets (all at once) on day 1, then decrease by 1 tablet daily until gone. 21 Tablet Active baclofen (LIORESAL) 5 mg tablet Take 1 Tablet (5 mg) by mouth 3 times daily as needed for Pain. 90 Tablet Active baclofen (LIORESAL) 5 mg tablet Take 1 Tablet (5 mg) by mouth 3 times daily as needed for Pain. 20 Tablet 025 2024 Discontinued(R eorder) tiZANidine (ZANAFLEX) 4 mg Tablet TAKE 1 TABLET BY MOUTH EVERY 6 HOURS NEEDED FOR SPASM 2024 Discontinued HYDROcodone-acet aminophen (NORCO) 7.5-325 mg TabletIndication s:Lumbar radiculopathy Take 1 Tablet by mouth 2 times daily as needed for Pain, Moderate. Dose adjustment Max Daily Amount: 2 Tablets 60 Tablet 025 2024 Discontinued amoxicillin-clav ulanate (AUGMENTIN) 875-125 mg tabletIndication s:Acute left ankle pain Take 1 Tablet by mouth every 12 hours for 10 days. 20 Tablet 025 2024 Active Problems Problem Noted Date Diagnosed Date Failure to thrive in adult 01/26/2025 Generalized muscle weakness 01/26/2025 At moderate risk for fall 01/21/2025 Decreased appetite 01/21/2025 Opioid-induced constipation 01/21/2025 Bladder outlet obstruction 01/20/2025 Acute cystitis with hematuria 01/20/2025 Fecal impaction in rectum 01/20/2025 Enlarged gallbladder 01/20/2025 Hypokalemia 01/20/2025 Chronic midline low back pain without sciatica 0 01/20/2025 Frequent falls 06/27/2024 Syncope 06/27/2024 Acute midline low back pain without sciatica Acute midline thoracic back pain 06/27/2024 T12 compression fracture, initial encounter 06/15 Closed fracture of right distal radius Simple chronic bronchitis 01/22/2024 Raynaud's phenomenon without gangrene 11/20/2023 HTN (hypertension), benign 11/20/2023 Dementia 08/06/2023 Tobacco use 05/04/2023 EDDIE (generalized anxiety disorder) 02/02/2023 Moderate episode of recurrent major depressive d isorder 02/02/2023 Bipolar affective disorder, currently depressed, moderate 02/02/2023 Mixed hyperlipidemia 02/02/2023 Iron deficiency anemia 02/02/2023 Vitamin D deficiency 02/02/2023 S/P gastric bypass 02/02/2023 IBS (irritable bowel syndrome) 02/02/2023 History of transient ischemic attack (TIA) 02/02 Neurocognitive disorder 02/02/2023 Encounters Date Type Department Care Team Description 07/02/2025 6:46 AM CDT - 07/02/2025 11:59 PM CDT Hospital Encounter [facility] [address] [address] Lizzeth Bennett FNP Arrived Discharge Disposition: Home or Self Care 07/01/[address] [phone] Jeancarlos Tiwari MD 06/30/2025 External Device Data [facility] ABSTRACTION Provider, Abstract 06/29/[address] [address] Jeancarlos Tiwari MD 06/26/2025 Orders Only [address] [address] Lizzeth Bennett FNP Left ankle swelling (Primary Dx); Suspected DVT (deep vein thrombosis); Localized swelling, mass and lump, left lower limb 06/22/[address] [phone] Jeancarlos Tiwari MD Results 06/22/2025 Results Follow-Up [address] [phone] Lizzeth Bennett FNP XR FOOT 3+ VW LEFT 06/19/2025 4:00 PM CDT Office Visit [address] [phone] Lizzeth Bennett FNP Acute left ankle pain (Primary Dx); Declined influenza vaccine 06/19/2025 3:36 PM CDT - 06/19/2025 11:59 PM CDT Hospital Encounter [facility] [address] [place] [address] Donald Lizzeth Ingrid, GIS INSTRUCTOR Discharge Disposition: Home or Self Care 06/19/2025 3:35 PM CDT - 06/19/2025 11:59 PM CDT Hospital Encounter [facility] [address] [place] [address] Dilcia Bennettily Ingrid, NEREIDA Discharge Disposition: Home or Self Care 06/03/[address] [place] [address] Jeancarlos Tiwari MD Lumbar radiculopathy 06/02/2025 External Device Data ST[place] ABSTRACTION Provider, Abstract 05/14/[address] [place] [address] Louise Cee, NEREIDA Skin tear of right lower leg without complication, initial encounter 05/12/2025 External Device Data [facility] ABSTRACTION Provider, Abstract 05/07/2025 Results Follow-Up [address] [place] [address] Christine Gutierrez, GIS INSTRUCTOR COMPREHENSIVE METABOLIC PANEL, CBC WITH DIFFERENTIAL 05/01/2025 11:20 AM CDT Office Visit [address] [place] [address] Jeancarlos Tiwari MD Simple chronic bronchitis (CMS/HCC) (Primary Dx); Raynaud's phenomenon without gangrene; HTN (hypertension), benign; Lumbar radiculopathy 04/24/2025 Orders Only [address] [place] [address] Louise Cee, GIS INSTRUCTOR Lower extremity edema 04/14/2025 Refill [facility] [address] [address] Louise Cee, NEREIDA Simple chronic bronchitis (CMS/HCC) 04/08/2025 Telephone [facility] [address] [address] Louise Cee FNP Referral (Pain Management) 04/08/2025 Telephone [facility] [address] [address] Kendy Bridges, NEREIDA Referral (Cardiology); Question; Provider Call from Last 3 Months Immunizations Immunization Administration Dates Next Due (COMRINATY 2024-)(12YR UP) COVID-19 VACCINE, MRNA (PF)30 MCG/0.3 ML, IM SYRINGE 08/01/2024 (PREVNAR 20)(6 WKS UP) PNEUM OCOCCAL CONJUGATE VACCINE 20-VALENT (PCV20), POLYSACCHARIDE TEP472 CONJUGATE, ADJUVANT 0.5 ML (PF) IM 01/29/2025 (SPIKEVAX) (12 YRS UP PRIMAR Y SERIES) COVID-19 VACCINE - MRNA-1273(PF) 100 MCG/0.5 ML IM SUSP 09/15/2021,01/20/2021,12/23/2020 INFLUENZA VACCINE QUADRIVALE NT 3 YR UP PF IM 08/06/2023 INFLUENZA VACCINE QUADRIVALE NT 6 MOS UP PF IM 08/06/2023 Influenza Seasonal Unspecifi ed Formulation IM 08/01/2024 Family History Medical History Relation Name Comments Ovarian Cancer Daughter Alcohol abuse Father Colon Cancer Father Heart Failure Mother Colon Cancer Paternal Uncle 1 Colon Cancer Paternal Uncle 2 Colon Cancer Paternal Uncle 3 Colon Cancer Paternal Uncle 4 Relation Name Status Comments Daughter Father Mother Paternal Uncle 1 Paternal Uncle 2 Paternal Uncle 3 Paternal Uncle 4 Social History Tobacco Use Types Packs/Day Years Used Date Smoking Tobacco: Every Day Cigarettes 1 40.7 Started: 1984 Smokeless Tobacco: Never Tobacco Cessation:Ready to Q uit: No; Counseling Given: Yes Alcohol Use Standard Drinks/Week Comments Not Currently [...] on file Legal Sex Female 8:38 AM 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 Gender Identity Not on file Sexual Orientation Not on file Last Filed Vital Signs Vital Sign Reading Time Taken Comments Blood Pressure 122/70 06/19/2025 3:16 PM CDT Pulse 74 06/19/2025 3:16 PM CDT Temperature 36.9 C (98.4 F) 06/19/2025 3:16 PM CDT Respiratory Rate 16 06/19/2025 3:16 PM CDT Oxygen Saturation 99% 06/19/2025 3:16 PM CDT Inhaled Oxygen Concentration - - Weight 50 kg (110 lb 3.2 oz) 06/19/2025 3:16 PM CDT Height 162.6 cm (5' 4 ) 06/19/2025 3:16 PM CDT Body Mass Index 18.92 06/19/2025 3:16 PM CDT Plan of Treatment Upcoming Encounters Date Type Department Care Team (Late st Contact Info) Description 11/02/2025 10:40 AM INDUSTRIAL 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 Office Visit [facility] [address] [phone] Jeancarlos Tiwari MD [address] [phone] Health Maintenance Due Date Last Done Comments FIT/FOBT Q 1 YEAR (AUTO ORDER) 1978 FLEX SIG/CT COLONOGRAPHY Q 5 YEARS (AUTO ORDER) 1978 DTAP/TDAP/TD VACCINES (1 - Tdap) 1979 HPV/Cotest (21-29) 1981 CERVICAL CANCER SCREENING 1990 HPV/Cotest (30-65) 1990 PAP SMEAR 1990 FIT/FOBT Q 1 year 2005 Flex Sig/CT Colonography Q 5 years 2005 Lung Cancer Screening 2010 ZOSTER VACCINE (1 of 2) 2010 RSV VACCINE (60+ or ) (1 - Risk 60-74 years 1-dose series) 2020 INFLUENZA VACCINE (#1) 2025 4, 08/01/2024, 07/15/2024, Additional history exists BREAST CANCER SCREENING 11/07/2025 11/07/2024, 08/06 FIT-DNA Q 3 years 12/26/2025 12/26/2022 FIT/ DNA Q 3 YEARS (AUTO ORDER) 12/26/2025 3, 12/26/2022 COLORECTAL CANCER SCREENING (AUTO ORDER) 03/19/2033 03/19/2023 COLORECTAL SCREENING 03/19/2033 03/19/2023 Colorectal Cancer Screening (AUTO ORDER) 03/19/2033 Colorectal Cancer Screening 03/19/2033 COVID-19 Vaccine Completed 08/01/2024, 07/2023, 09/15/2021, Additional history exists [place]) Preventative Visit/Annual Wellness Visit Completed 01/23/2025, 01/22/2024, 02/02/2023 Goals Goal Patient Goal Type Associated Problems Recent Progress Patient-Stated? Author Patient Stated General Yes Micheline Singh Note: 02/19/2023 Today's SMART Goal: Patient will make a list of things she does NOT want in a relationship By the next contact. Progress: Medical Devices Implanted Type Area Life Enrichment Assistant Device Identifier Shelf Expiration Date Model / Serial / Lot Hip Hip Procedures Procedure Name Priority Date/Time Associated Diagnosis Comments XR FOOT 3+ VW LEFT Routine 06/19/2025 3: 50 PM CDT Acute left ankle pain XR ANKLE 3+ VW LEFT Routine 06/19/2025 3 :50 PM CDT Acute left ankle pain CBC WITH DIFFERENTIAL Routine 05/01/2025 12:08 PM CDT HTN (hypertension), benign COMPREHENSIVE METABOLIC PANEL Routine 05/01/2025 12:08 PM CDT HTN (hypertension), benign ECHO COMPLETE Routine 04/09/2025 Lower extremity edema MAMMO 3D LORRAINE SCREEN BILAT W OR WO CAD Routine 11/07/2024 9:08 AM INDUSTRIAL 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 Screening mammogram, encounter for COLON CANCER SCREEN, STOOL DNA Routine 12/26/2022 10:40 AM CDT Encounter for colorectal cancer screening from Last 3 Months or Most Recently Relevant to Health Maintenance Results * XR FOOT 3+ VW LEFT (06/19/2025 3:50 PM CDT) Anatomical Region Laterality Modality Ankle / Foot Computed Radiogr aphy 06/19/2025 3:50 PM CDT Impressions 06/22/2025 7:34 AM CDT IMPRESSION: Please see below. Exam: XR FOOT 3+ VW LEFT Date/Time of Exam: 06/19/2025 3:50 PM Reason For Exam: See Diagnosis. Diagnosis: Acute left ankle pain. Findings: No acute osseous pathology or subluxation. Joint spaces well maintained. Soft tissues nonspecific. Narrative Procedure Note Vincent Zaragoza MD - 06/22/2025 IMPRESSION: Please see below. Exam: XR FOOT 3+ VW LEFT Date/Time of Exam: 06/19/2025 3:50 PM Reason For Exam: See Diagnosis. Diagnosis: Acute left ankle pain. Findings: No acute osseous pathology or subluxation. Joint spaces well maintained. Soft tissues nonspecific. iLzzeth Bennett GIS INSTRUCTOR DIAGNOSTIC IMAGING ORDERABL ES Final Result * XR ANKLE 3+ VW LEFT (06/19/2025 3:50 PM CDT) Anatomical Region Laterality Modality Ankle / Foot Computed Radiogr aphy 06/19/2025 3:50 PM CDT Impressions 06/22/2025 7:34 AM CDT IMPRESSION: Please see below. Exam: XR ANKLE 3+ VW LEFT Date/Time of Exam: 06/19/2025 3:50 PM Reason For Exam: See Diagnosis. Diagnosis: Acute left ankle pain. Findings: No acute osseous pathology or subluxation. Joint spaces fairly well maintained. Soft tissues nonspecific. Narrative Procedure Note Vincent Zaragoza MD - 06/22/2025 IMPRESSION: Please see below. Exam: XR ANKLE 3+ VW LEFT Date/Time of Exam: 06/19/2025 3:50 PM Reason For Exam: See Diagnosis. Diagnosis: Acute left ankle pain. Findings: No acute osseous pathology or subluxation. Joint spaces fairly well maintained. Soft tissues nonspecific. Lizzeth Bennett GIS INSTRUCTOR DIAGNOSTIC IMAGING ORDERABL ES Final Result * (ABNORMAL) CBC WITH DIFFERENTIAL (05/01/2025 12:08 PM CDT) WBC 8.2 3.8 - 10.8 Thousand/u L [facility] RBC 3.89 3.80 - 5.10 Million/uL [facility] HEMOGLOBIN 11.3(L) 11.7 - 15.5 g/dL [facility] HEMATOCRIT 37.7 35.0 - 45.0 % [facility] MCV 96.9 80.0 - 100.0 fL [facility] MCH 29.0 27.0 - 33.0 pg [facility] MCHC 30.0(L) 32.0 - 36.0 g/dL [facility] Comment: For adults, a slight decrease in the calculated MCHC value (in the range of 30 to 32 g/dL) is most likely not clinically significant; however, it should be interpreted with caution in correlation with other red cell parameters and the patient's clinical condition. RDW 15.0 11.0 - 15.0 % [facility] PLATELETS 462(H) 140 - 400 Thousand/u L [facility] MPV 9.3 7.5 - 12.5 fL [facility] NEUTROPHIL ABSOLUTE 5,469 1,500 - 7,800 cells/uL [facility] LYMPHOCYTE ABSOLUTE 1,993 850 - 3,900 cells/uL [facility] MONOCYTE ABSOLUTE 664 200 - 950 cells/uL [facility] EOSINOPHIL ABSOLUTE 57 15 - 500 cells/uL [facility] BASOPHILS ABSOLUTE 16 0 - 200 cells/uL [facility] NEUTROPHIL 66.7 % [facility] LYMPHOCYTES 24.3 % [facility] MONOCYTE 8.1 % [facility] EOSINOPHILS 0.7 % [facility] BASOPHILS 0.2 % [facility] Comment: Test Performed at: [facility] [address] [place] [address] Ellen Evans MD Blood 05/01/2025 12:0 8 PM CDT 05/02/2025 2:17 AM CDT us Jeancarlos Tiwari MD HEMATOLOGY ORDERABLES Fin al Result [facility] [phone] [facility] [address] [place] [address] * (ABNORMAL) COMPREHENSIVE METABOLIC PANEL (05/01/2025 12:08 PM CDT) GLUCOSE 83 65 - 99 mg/dL [facility] Comment: Fasting reference interval BUN 10 7 - 25 mg/dL [facility] CREATININE 0.66 0.50 - 1.05 mg/dL [facility] GFR 98 > OR = 60 mL/min/1. 73m2 [facility] BUN/CREAT RATIO SEE NOTE: 6 - 22 (calc) [facility] Comment: Not Reported: BUN and Creatinine are within reference range. SODIUM 140 135 - 146 mmol/L [facility] POTASSIUM 3.9 3.5 - 5.3 mmol/L [facility] CHLORIDE 113(H) 98 - 110 mmol/L [facility] CO2 20 20 - 32 mmol/L [facility] CALCIUM 8.6 8.6 - 10.4 mg/dL [facility] TOTAL PROTEIN 6.3 6.1 - 8.1 g/dL [facility] ALBUMIN 4.2 3.6 - 5.1 g/dL [facility] GLOBULIN 2.1 1.9 - 3.7 g/dL (calc) [facility] ALBUMIN/GLOBULIN RATIO 2.0 1.0 - 2.5 (calc) [facility] BILIRUBIN TOTAL 0.2 0.2 - 1.2 mg/dL [facility] ALKALINE PHOSPHATASE 110 37 - 153 U/L [facility] AST 14 10 - 35 U/L [facility] ALT 11 6 - 29 U/L [facility] Comment: Test Performed at: [facility] [address] [place] [address] Ellen Evans MD Blood 05/01/2025 12:0 8 PM CDT 05/02/2025 2:17 AM CDT us Jeancarlos Tiwari MD CHEMISTRY ORDERABLES Leticia l Result [facility] [phone] [facility] [address] [place] [address] * ECHO COMPLETE - CONTRAST AND STRAIN IF INDICATED (04/09/2025) us Louise Esther Cee GIS INSTRUCTOR US ORDERABLES Final Re sult * MAMMO 3D LORRAINE SCREEN BILAT W OR WO CAD (11/07/2024 9:08 AM INDUSTRIAL 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) Anatomical Region Laterality Modality Breast Bilateral Mammography, Dig ital Radiography Impressions 11/11/2024 5:01 PM INDUSTRIAL 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 : No mammographic evidence of malignancy. BI-RADS ASSESSMENT: 1 - Negative RECOMMENDATION: Routine annual screening mammography. Narrative 11/11/2024 5:01 PM INDUSTRIAL 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 EXAM: MAMMO SCRN BILAT 3D LORRAINE W OR WO CAD INDICATION: Screening COMPARISON: 08/06/2023 MAMMO SCRN BILAT 3D LORRAINE W OR WO CAD BREAST COMPOSITION: The breasts are heterogeneously dense, which may obscure small masses. FINDINGS: RIGHT BREAST: There are no suspicious masses, calcifications, or areas of architectural distortion. LEFT BREAST: There are no suspicious masses, calcifications, or areas of architectural distortion. Lizzeth Bennett [facility] MAMMO ORDERABLES Final Resu lt * (ABNORMAL) COLON CANCER SCREEN, STOOL DNA (12/26/2022 10:40 AM CDT) COLOGUARD RESULT Positive( A) Negative [facility] Comment: POSITIVE TEST RESULT. A positive Cologuard result should be followed with a colonoscopy or visual examination of the colon. The normal value (reference range) for this assay is negative. TEST DESCRIPTION: Composite algorithmic analysis of stool DNA-biomarkers with hemoglobin immunoassay. Quantitative values of individual biomarkers are not reportable and are not associated with individual biomarker result reference ranges. Cologuard is intended for colorectal cancer screening of adults of either sex, 45 years or older, who are at average-risk for colorectal cancer (CRC). Cologuard has been approved for use by the U.S. FDA. The performance of Cologuard was established in a cross sectional study of average-risk adults aged 50-84. Cologuard performance in patients ages 45 to 49 years was estimated by sub-group analysis of near-age groups. Colonoscopies performed for a positive result may find as the most clinically significant lesion: colorectal cancer [4.0%], advanced adenoma (including sessile serrated polyps greater than or equal to 1cm diameter) [20%] or non- advanced adenoma [31%]; or no colorectal neoplasia [45%]. These estimates are derived from a prospective cross-sectional screening study of 10,000 individuals at average risk for colorectal cancer who were screened with both Cologuard and colonoscopy. (Molly Le al, N Engl J Med 2014;370(14):9007-8370.) Cologuard may produce a false negative or false positive result (no colorectal cancer or precancerous polyp present at colonoscopy follow up). A negative Cologuard test result does not guarantee the absence of CRC or advanced adenoma (pre-cancer). The current Cologuard screening interval is every 3 years. ([place] [employer] and U.S. Multi-Society Task Force). Cologuard performance data in a 10,000 patient pivotal study using colonoscopy as the reference method can be accessed at the following location: www.[employer]/results. Additional description of the Cologuard test process, warnings and precautions can be found at www.cologuard.com. Stool STOOL SPECIMEN / Unknown 12/26/2022 10:40 AM CDT 12/27/2022 5:04 PM CDT us Bette Underwood GIS INSTRUCTOR BODY FLUIDS AND STOOLS Final Res ult [facility] CLIA # [id number] [address] [facility], [address] [place] [address] from Last 3 Months or Most Recently Relevant to Health Maintenance Insurance [place] D[place] COMPLETE H[place] [facility] [id number] Advance Directives For more information, please contact: [phone] * Full Code (Latest Code Status on File) Date Activated Date Inactivated Comments 05/01/2025 5:59 PM * Full Code Date Activated Date Inactivated Comments 01/26/2025 7:52 PM 01/29/2025 11:30 AM * Full Code Date Activated Date Inactivated Comments 01/20/2025 7:35 PM 01/21/2025 7:08 PM * Full Code Date Activated Date Inactivated Comments 03/19/2023 1:45 PM 03/19/2023 4:41 PM Care Teams Lead Pharmacy Technician Relationship Specialty Start Date End Date Jeancarlos Tiwari MD [address] [phone] PCP - General Family Practice 12/13/22
--- OUTSIDE RECORDS SUMMARY | 2025-07-04 08:57 | XMS_ITS | Encounter Summary ---
Author Organization [facility] Address 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 Gender Identity Not on file Sexual Orientation Not on file documented as of this encounter Plan of Treatment Upcoming Encounters Date Type Department Care Team (Late Contact Info) Description 11/02/2025 10:40 AM SIGN BOARD ERECTOR Office Visit [facility] Family Medicine [address] [address] Jeancarlos Tiwari MD [address] [address] documented as of this encounter [...] documented as of this encounter Care Teams Movie Operator Relationship Specialty Start Date End Date Jeancarlos Tiwari MD [address] [facility] [address] [place] [address] PCP - General Family Practice 12/13/22 documented as of this encounter
--- OUTSIDE RECORDS SUMMARY | 2025-07-04 08:57 | XMS_ITS | Encounter Summary ---
Author Organization [facility] Address 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 Gender Identity Not on file Sexual Orientation Not on file documented as of this encounter Plan of Treatment Upcoming Encounters Date Type Department Care Team (Late Contact Info) Description 11/02/2025 10:40 AM MEDICAL TERRITORY MANAGER Office Visit [facility] [address] [place] [address] Jeancarlos Tiwari MD [address] [facility] [address] [place] [address] documented as of this encounter Goals [...] documented as of this encounter Care Teams Carder Blankets Relationship Specialty Start Date End Date Jeancarlos Tiwari MD [address] [facility] [address] [place] [address] PCP - General Family Practice 12/13/22 documented as of this encounter
--- OUTSIDE RECORDS SUMMARY | 2025-07-04 08:57 | XMS_ITS | Patient Health Record ---
Author Organization [facility] Address [address] [place] [address] Care Team Providers Care Collection Administrator Name Role Phone Kevon SEARS, Zhen Primary Care Provider ZHEN Cohen Unavailable [phone] Allergies Allergen (clinical drug ingredient) Drug/Non Drug Allergy documented on EMR Reaction Allergy Type Onset Date Status some depression meds , not sure of name (uncoded) Unknown Allergy Active Reason For Referral No Information Medications Medication SIG (Take, Route, Frequency, Duration) Notes Start Date End Date Status HYDROcodone-Acetaminophen 10-325 MG 1 tablet as needed Orally every 6 hrs Active Centrum Silver - as directed Orally Active Robaxin-750 750 MG 1 tablet Orally bid for 30 Active Iron 325 (65 Fe) MG 1 tablet Orally Once a day for 30 day(s) Active Percocet 5-325 MG 1 tablet as needed O rally bid for 15 days 04/30/2020 Active busPIRone HCl 10 MG 1 tablet Orally Twic e a day Active Bactrim DS 800-160 MG 1 tablet Orally Tw ice a day for 7 days 05/14/2020 Active PARoxetine HCl 20 MG 1 tablet in the mor alisson Orally Once a day for 30 day(s) Active Mariusz Hose . . . as directed by physician for 30 day(s) 05/18/2020 Active lamoTRIgine 100 MG 1 tablet Orally Once a day for 30 day(s) Active ARIPiprazole 2 MG 1 tablet Orally Once a day for 30 day(s) Active Vitamin B12 500 MCG 1 tablet Orally Once a day for 30 day(s) Active Vitamin C Plus [place] 500 MG 1 tablet Orally Once a day for 30 day(s) Active Cipro 500 MG 1 tablet Orally ever y 12 hrs for 5 day(s) 04/29/2020 Active Eliquis 2.5 MG 1 TAB Orally BID for 28 DAYS 04/30/2020 Active Immunizations Vaccine Route Administration Date Status Comme nts Influenza Unknown 08/28/2019 Administered Social History Alcohol: Question Answer Notes Did you have a drink contain ing alcohol in the past year? Yes How often did you have a dri nk containing alcohol in the past year? Monthly or less (1 point) Points 1 Interpretation Negative Problems Problem Type SNOMED Code ICD Code Onset Dates Problem Status W/U Status Risk Notes Problem 449718934 Presence of right artificial hip joint (Z96.641) Active confirmed Problem 460054842 Aftercare following joint replacement surgery (Z47.1) Active confirmed Problem 8896022 Greater trochanteric bursitis of right hip (M70.61) Active confirmed Problem 012614725 Hx of bariatric surgery (Z98.84) Active confirmed Problem 86815711164351 History of lumbar fusion (Z98.1) Active confirmed Problem 06168013 Cigarette smoker (F17.210) Active confirmed Plan Of Treatment No Information Insurance Providers Payer Name Payer Address Payer Phone Subscriber Number Group Number Insured Name Patient Relationship to Insured Coverage Start Date Coverage End Date [facility] [address] [place] [phone] [id number] D[employer] Self - patient is the insured 0 Medical (General) History Medical History History ICD Code anxiety/depression gastric byipass Surgical History Surgery Date(Month/Year) gastric bypass low back with lourdes placement hernia repairs; multiple Hospitalization History Reason Date(Month/Year) None
[2025-07-04 09:10] LABS: Hematocrit 37.3 % (36-47); Hemoglobin 12.30 g/dL (11.27-16.99); Mean Corpuscular HGB Conc 33.0 g/dL (30-55); Mean Corpuscular Hemoglobin 27.5 pg (27-33); Mean Corpuscular Volume 83.4 fl (85-98); Nucleated Red Blood Cells % 0 %; Platelet Count 442 10^3/cmm (157-399); Red Blood Count 4.47 10^6/uL (3.85-5.65); White Blood Count 22.09 10^3/uL (3.29-11.43)
--- NOTE | 2025-07-04 09:12 | CTR_ITS ---
PROCEDURE INFORMATION: Exam: CT Abdomen And Pelvis With Contrast Exam date and time: 07/04/2025 9:56 AM Age: 64 years old Clinical indication: Abdominal pain; Generalized; Prior surgery; Surgery date: 6+ months; Surgery type: Lumbar, right hip, gastric bypass; Additional info: Abd pain TECHNIQUE: Imaging protocol: Computed tomography of the abdomen and pelvis with contrast. Radiation optimization: All CT scans at this facility use at least one of these dose optimization techniques: automated exposure control; mA and/or kV adjustment per patient size (includes targeted exams where dose is matched to clinical indication); or iterative reconstruction. Contrast material: OMNIPAQUE 350; Contrast volume: 75 ml; Contrast route: INTRAVENOUS (IV); COMPARISON: CR (ABDOMEN, ) 07/04/2025 9:04 AM RADIATION DOSE METRICS: Total DLP (mGy-cm): 304.83 FINDINGS: Esophagus: Slight ectasia of the postoperative distal esophagus and gastroesophageal junction. Liver: Normal. No mass. Gallbladder and biliary ducts: Normal. No calcified stones. No ductal dilation. Pancreas: The pancreatic duct is dilated in the head of the pancreas measuring 5 mm. No focal pancreatic lesion is seen. Spleen: Normal. No splenomegaly. Adrenal glands: Normal. No mass. Kidneys and ureters: Normal. No hydronephrosis. Stomach and bowel: Small bowel intussusception is noted in the right mid to lower quadrant. It may involve a postsurgical small bowel loop which is dilated up to 6 cm in caliber. The jejunum is dilated proximal to this. Slight wall thickening of the small bowel at the level of the intussusception. Appendix: No evidence of appendicitis. Intraperitoneal space: Unremarkable. No free air. No significant fluid collection. Vasculature: Unremarkable. No abdominal aortic aneurysm. Lymph nodes: Unremarkable. No enlarged lymph nodes. Urinary bladder: Unremarkable as visualized. Reproductive: Unremarkable as visualized. Bones/joints: Posterior spinal fusion from L3-L5. Status post vertebral augmentation at T12 and L1 with mild compression fracture of T12. Bilateral sacral alar fractures are seen, right more prominent than left. These may be subacute given the sclerosis. Old left symphysis pubis fracture is noted. Partially visualized right hip prosthesis. Soft tissues: Unremarkable. CT/CT abdomen pelvis w con* [id number] IMPRESSION: 1. Small bowel obstruction secondary to small bowel intussusception. 2. Other findings as detailed above.
[2025-07-04 09:29] LABS: Alanine Aminotransferase < 5 U/L (0-33); Albumin Level 3.7 g/dL (3.5-5.2); Alkaline Phosphatase 152 U/L (35-105); Anion Gap 19.6 (5-19); Aspartate Amino Transferase 12 U/L (0-32); Blood Urea Nitrogen 17 mg/dL (8-23); Calcium 8.4 mg/dL (8.5-10.5); Carbon Dioxide 22 mmol/L (22-29); Chloride 96 mmol/L (98-107); Creatinine Clr Calc Pharmacy 66.4722; Globulin 2.8 g/dL (1.3-4.6); Glucose 184 mg/dL (65-115); Magnesium 2.2 mg/dL (1.7-2.3); Osmolality Calculated 286 mOsm/kg (285-295); Sodium 135 mmol/L (136-145); Total Protein 6.5 g/dL (6.6-8.7)
[2025-07-04 09:31] LABS: Lipase 26 U/L (13-60)
[2025-07-04 09:34] VITALS: BP 131/87; O2SAT 92
[2025-07-04 09:40] LABS: Potassium 2.6 mmol/L (3.5-5.1)
[2025-07-04] MEDS: iohexol 350 mg/mL 500 mL Btl (per mL) IV (10:01)
[2025-07-04] MEDS: lidocaine 1% 5 ML in potassium chloride premix 100 ML 26.25 ML IV (10:07)
[2025-07-04 10:37] LABS: Glucose Urine UA Negative (Normal); Nitrate Urine Negative (Negative)
[2025-07-04 10:42] LABS: Add Urine Microscopic? YES
--- NOTE | 2025-07-04 10:46 | PC.PHAR ---
Pt has 9 new medications listed from 06/08/25 through 07/01/25. Pt verified all her medications and took her morning doses.
[2025-07-04] MEDS: piperacillin-tazobactam 3.375 GM in sodium chloride 0.9% (plus) 50 ML IV (10:49)
[2025-07-04 11:14] LABS: Specific Gravity, Urine 1.044 (1.005-1.030)
[2025-07-04 11:15] LABS: UA Slide Review UA Slide Review Perf
--- NOTE | 2025-07-04 11:34 | PM.CONSULT ---
Providers/Reason For Consult Consulting Physician/Specialty*: General Surgery Reason for Consult*: Obstipation, jejunal intussusception Primary Care Provider: Jeancarlos Tiwari History of Present Illness History of Present Illness Digna Rick is a 64 year old female with history of previous bariatric surgery in the form of a gastric bypass who presents with 4 days of dry heaving abdominal distention and lack of bowel movements, no significant abdominal pain, has not had vomiting but she does have nausea. Last bowel movement was [address] scan showed evidence of possible jejunal intussusception Review of Systems General: Reports: 10 or more systems reviewed and unremarkable except in HPI and below Medications/Allergies Home Medications ?Medication ?Instructions ?Recorded ?Confirmed ?Last Taken ?Type Fast form #1 ea 07/03/24 07/04/25 Unknown Rx amlodipine 5 mg tablet 5 mg PO DAILY 07/28/24 07/04/25 07/04/25 History budesonide-formoterol HFA 80 2 puff inhalation BID 07/28/24 07/04/25 07/04/25 History mcg-4.5 mcg/actuation aerosol inhaler (Symbicort) bupropion HCl 150 mg 24 hr tablet, 150 mg PO DAILY 07/28/24 07/04/25 07/04/25 History extended release cariprazine 3 mg capsule (Vraylar) 3 mg PO DAILY 07/28/24 07/04/25 07/04/25 History cyanocobalamin (vitamin B-12) 5,000 mcg PO DAILY 07/28/24 07/04/25 07/04/25 History 5,000 mcg capsule diclofenac sodium 50 mg 50 mg PO BID PRN inflammation or 07/28/24 07/04/25 08/05/24 History tablet,delayed release pain donepezil 10 mg tablet 10 mg PO .qhs 07/28/24 07/04/25 07/03/25 History ferrous sulfate 325 mg (65 mg 325 mg PO DAILY 07/28/24 07/04/25 07/04/25 History iron) tablet,delayed release levomilnacipran 80 mg capsule,24 80 mg PO DAILY 07/28/24 07/04/25 07/04/25 History hr,extended release (Fetzima) albuterol sulfate 90 mcg/actuation 2 puff inhalation Q6H PRN 07/04/25 07/04/25 Unknown History aerosol inhaler Shortness Of Breath baclofen 5 mg tablet 5 mg PO TID PRN Pain 07/04/25 07/04/25 Unknown History fluticasone propionate 50 2 spray intranasal DAILY 07/04/25 07/04/25 07/04/25 History mcg/actuation nasal spray,suspension gabapentin 100 mg capsule 200 mg PO TID 07/04/25 07/04/25 07/04/25 History hydrocodone 7.5 mg-acetaminophen 1 tab PO BID PRN Moderate Pain 07/04/25 07/04/25 Unknown History 325 mg tablet (Scale Score 5-6) ipratropium 0.5 mg-albuterol 3 mg 3 ml inhalation Q6H PRN Shortness 07/04/25 07/04/25 Unknown History (2.5 mg base)/3 mL nebulization Of Breath Or Wheezing soln losartan 50 mg tablet 50 mg PO DAILY 07/04/25 07/04/25 07/04/25 History mirtazapine 7.5 mg tablet 7.5 mg PO DAILY 07/04/25 07/04/25 Unknown History mupirocin 2 % topical ointment 1 applic topical DAILY PRN Skin 07/04/25 07/04/25 Unknown History Irritation naloxegol 25 mg tablet (Movantik) 25 mg PO QAM 07/04/25 07/04/25 07/04/25 History Allergies Allergy/AdvReac Type Severity Reaction Status Date / Time No Known Allergies Allergy Verified 09/25/24 11:09 Current Medications Generic Name Dose Route Start Last Admin Trade Name Freq PRN Reason Stop Dose Admin Lidocaine HCl 5 ml/ Potassium 105 mls @ 26.25 mls/hr 07/04/25 09:43 07/04/25 10:07 Chloride IV 07/04/25 13:42 26.25 mls/hr ONCE ONE Administration PFSH Acute PFSH: Social History Smoking and tobacco/nicotine status: current every day tobacco/nicotine user Vitals/I&O/Wt Last Vital Signs Temp 97.8 F 07/04/25 08:55 Pulse 86 07/04/25 08:55 Resp 18 07/04/25 08:55 BP 131/87 07/04/25 09:34 Pulse Ox 92 07/04/25 09:34 O2 Del Method Room Air 07/04/25 09:34 Weight last 48 hrs Weight 98 lb Physical Exam GI: OTHER: The abdomen is benign the abdomen is soft there is some mild diffuse tenderness to palpation no peritonitis. Data 07/04/25 09:06 07/04/25 09:06 Micro: Microbiology 07/04/25 10:11 Blood Culture - Preliminary Blood SPECIMEN COLLECTED 07/04/25 10:09 Blood Culture - Preliminary Blood SPECIMEN COLLECTED A&P Assessment and plan 1. Gastric bypass status for obesity: 2. Intussusception of jejunum: 3. Small bowel obstruction: 4. Hypokalemia: Plan: This is a 64-year-old female who presents with small bowel obstruction in the setting of previous gastric bypass surgery with a CT scan shows significant jejunal distention with a jejunojejunal intussusception with a lead point likely at the level of the jejunojejunal anastomosis. Patient will require surgical intervention to resolve her intussusception, this will most likely entail revision of the gastric bypass. In the setting of previous bypass surgery and intussusception at the level of the bypass anastomosis, my recommendation will be transferred to higher level of care for evaluation by bariatric surgery for additional expertise and management of this complex surgical abdomen. In the interim I would recommend IV fluids, Gerber catheter for urine output, replacement of electrolytes. Since patient has not had any vomiting and taking consideration that she has a small gastric pouch we can likely defer decompression of the stomach until patient is transferred to higher level of care. In the case of patient presenting with worsening dry heaves or vomiting she will have to have an NG tube before transfer. While there is no evidence of bowel compromise at this current time, her elevated white count and imaging findings indicate that this likely that she will progress to bowel compromise unless she has a surgical intervention to resolve the obstruction. In the setting she will require emergent transfer to higher level of care. At the moment of my evaluation patient is stable from the surgical standpoint for transfer to higher level of care. There is no evidence of peritonitis or bowel perforation at this time. PDMP PDMP Reviewed: Not Reviewed Coding Level of Care Code 04147 Diagnoses Gastric bypass status for obesity Z98.84 Intussusception of jejunum K56.1 Small bowel obstruction K56.609 Hypokalemia E87.6
[2025-07-04 11:40] LABS: Lactic Sepsis W/Reflex 2.4 mmol/L (0.5-2.2)
[2025-07-04 13:14] LABS: Reflex Lactate Order REFLEX LACTIC ORDERD
[2025-07-04 13:39] VITALS: BP 155/93; PULSE 77; O2SAT 96
[2025-07-04 14:14] LABS: Lactic Acid level (Lactate) 0.9 mmol/L (0.5-2.2)
[2025-07-04 17:44] VITALS: BP 131/81; PULSE 72; PULSE 74; O2SAT 98; O2SAT 99
== END 2025-07-04 17:46 | disposition short-term general hospital (02) ==
PROVIDERS: Emergency Provider Emergency Medicine; PCP Family Medicine
DX: K56.1 Intussusception (principal); K56.609 Unspecified intestinal obstruction, unspecified as to partial versus complete obstruction; E87.6 Hypokalemia; Z98.84 Bariatric surgery status; Z72.0 Tobacco use
CPT/HCPCS: 36415; 74018; 74177; 80053; 81001; 83605; 83690; 83735; 85025; 87040; 96361; 96365; 96375; 99285; J2543; J3373; J3480; J7030; J7040; J7050; J9999

== ENCOUNTER → 2025-10-06 13:53 | Outpatient (BNVA) | payer OTHER, MEDICAID, SELFPAY | PROVIDERS: PCP Family Medicine; Visit Provider Orthopaedic Surgery | DX: S46.211A Strain of muscle, fascia and tendon of other parts of biceps, right arm, initial encounter (principal); X58.XXXA Exposure to other specified factors, initial encounter | CPT/HCPCS: 99213 ==